=== PATIENT | female | born 1960 | race Caucasian/White ===

== ENCOUNTER → 2024-07-20 13:32 | Outpatient (REF) | payer OTHER, SELFPAY | LOC: WDC 13:32 | PROVIDERS: ATTENDING PHYSICIAN Nurse Practitioner | DX: Z12.31 Encounter for screening mammogram for malignant neoplasm of breast (principal) | CPT/HCPCS: 77063; 77067 ==

== ENCOUNTER → 2024-08-28 06:29 | Day surgery (SDC) | payer OTHER, SELFPAY ==
[2024-08-28 08:57] LABS: Glucose - Point of Care 107 mg/dl (70-99)
== END ==
LOC: GI 06:29
PROVIDERS: ATTENDING PHYSICIAN Internal Medicine Gastroenterology
DX: K29.40 Chronic atrophic gastritis without bleeding (principal); K31.89 Other diseases of stomach and duodenum; K44.9 Diaphragmatic hernia without obstruction or gangrene; K22.89 Other specified disease of esophagus; R19.7 Diarrhea, unspecified; K31.A0 Gastric intestinal metaplasia, unspecified; K29.50 Unspecified chronic gastritis without bleeding; D13.0 Benign neoplasm of esophagus
CPT/HCPCS: 43239; 88305; 82962; 88341; 88342

== ENCOUNTER 2025-01-14 06:12 | Day surgery (SDC) | payer OTHER, SELFPAY ==
[2025-01-14 09:46] VITALS: BP 116/69
[2025-01-14 09:48] VITALS: BMI 28.6
[2025-01-14 10:17] LABS: Glucose - Point of Care 86 mg/dl (70-99)
[2025-01-14 11:33] VITALS: BP 114/83
[2025-01-14 11:46] VITALS: BP 125/86
[2025-01-14 12:00] VITALS: BP 122/85
== END 2025-01-14 12:13 | disposition home or self-care (01) ==
LOC: SDS 06:12
PROVIDERS: ATTENDING PHYSICIAN Internal Medicine Gastroenterology
DX: K22.89 Other specified disease of esophagus (principal)
CPT/HCPCS: 43259; 82962

== ENCOUNTER 2025-03-01 06:20 | Day surgery (SDC) | payer OTHER, SELFPAY | END 2025-03-01 10:34 | disposition home or self-care (01) | LOC: GI 06:20 | PROVIDERS: ATTENDING PHYSICIAN Internal Medicine Gastroenterology; FAMILY PHYSICIAN Nurse Practitioner | DX: R19.7 Diarrhea, unspecified (principal); K57.30 Diverticulosis of large intestine without perforation or abscess without bleeding; K64.0 First degree hemorrhoids; K63.3 Ulcer of intestine; K52.89 Other specified noninfective gastroenteritis and colitis; K52.832 Lymphocytic colitis | CPT/HCPCS: 45380; 88305; 88342 ==